=== PATIENT | male | born 1970 | race Caucasian/White ===

== ENCOUNTER 2017-04-20 00:43 | Inpatient (IN) | payer MEDICARE ==
[2017-04-20 00:44] VITALS: BMI 35.5
[2017-04-20 00:46] VITALS: O2SAT 96
[2017-04-20 02:37] LABS: BASO # 0.1 K/uL (0.0-0.2); BASO % 0.8 % (0.0-2.0); EOS # 0.4 K/uL (0.0-0.7); HEMATOCRIT 41.1 % (35.0-51.0); LYMPH # 4.9 K/uL (1.0-4.3); LYMPH % 41.2 % (20.0-40.0); MEAN CELL VOLUME 85.4 fl (80.0-94.0); MEAN CORPUSCULAR HEMOGLOBIN 27.7 pg (27.0-31.0); MEAN CORPUSCULAR HGB CONC 32.5 g/dL (33.0-37.0); MEAN PLATELET VOLUME 7.2 fl (7.2-11.7); MONO # 0.9 K/uL (0.0-0.8); MONO % 7.6 % (0.0-10.0); NEUT # 5.6 K/uL (1.8-7.0); NEUT % 47.4 % (50.0-75.0); RED CELL DISTRIBUTION WIDTH 14.7 % (11.5-14.5); WHITE BLOOD COUNT 11.9 K/uL (4.8-10.8)
[2017-04-20 02:42] LABS: ALB/GLOB RATIO 1.5 (1.0-2.1); ALCOHOL SERUM < 10 mg/dl (0-10); ALKALINE PHOSPHATASE 73 U/L (38-126); ALT/SGPT 84 U/L (21-72); AST/SGOT 51 U/L (17-59); BILIRUBIN,TOTAL 0.5 mg/dl (0.2-1.3); BLOOD UREA NITROGEN 17 mg/dl (9-20); CARBON DIOXIDE 26 mmol/L (22-30); CHLORIDE 105 mmol/L (98-107); GFR AFRICAN-AMERICAN > 60; GLUCOSE,RANDOM 100 mg/dL (75-110); POTASSIUM 4.2 MMOL/L (3.6-5.0); SODIUM 141 mmol/l (132-148); TOTAL PROTEIN 7.5 G/DL (6.3-8.2)
--- NOTE | 2017-04-20 02:45 | ED PDOC ---
HPI: Psych/Substance Abuse Time Seen by Provider: 04/20/17 01:00 Chief Complaint (Nursing): Psychiatric Evaluation Chief Complaint (Provider): Psychiatric Evaluation History Per: Patient History/Exam Limitations: no limitations Onset/Duration Of Symptoms: Days (x1 week) Current Symptoms Are (Timing): Still Present Additional Complaint(s): 46 y/o male presents to the emergency department with a complaint of worsening depression x1 week. Associated with suicidal ideation. Reports being admitted in the past for previous depression of suicidal thoughts. States he is not currently following up with a psychiatrist or taking psychiatric medications. Denies active plan (initially verbalized thought of jumping [place] of [place]), Denies auditory or visual hallucinations. Past Medical History Reviewed: Historical Data, Nursing Documentation, Vital Signs Vital Signs: Last Vital Signs Temp 98.6 F 04/20/17 00:44 Pulse 88 04/20/17 00:44 Resp 13 04/20/17 00:44 BP 134/81 04/20/17 00:44 Pulse Ox 96 04/20/17 00:44 - Medical History PMH: Back Problems, Bipolar Disorder, Depression, Migraine Denies: Diabetes, Hepatitis, HIV, HTN, Seizures, Sexually Transmitted Disease - Surgical History Surgical History: Cholecystectomy, Tonsillectomy Other surgeries: Lumbar spine fusion, right knee ACL and MCL repair, and right shoulder surgery - Family History Family History: States: No Known Family Hx - Social History Current smoker - smoking cessation education provided: Yes (Heavy Smoker > 10 Cigarettes Daily) Alcohol: None Drugs: Cocaine - Immunization History Hx Tetanus Toxoid Vaccination: No Hx Influenza Vaccination: No Hx Pneumococcal Vaccination: No - Home Medications Home Medications: Ambulatory Orders Medication Instructions Recorded Duloxetine HCl [Duloxetine] 60 mg PO DAILY 04/20/17 Omeprazole [Omeprazole] 40 mg PO DAILY 04/20/17 - Allergies Allergies/Adverse Reactions: Allergies Allergy/AdvReac Type Severity Reaction Status Date / Time meperidine HCl [From Demerol] Allergy DIZZINESS Verified 04/20/17 00:47 Review of Systems ROS Statement: Except As Marked, All Systems Reviewed And Found Negative Psych: Positive for: Depression, Suicidal ideation. Negative for: Other ( Auditory/visual hallucinations or active plan) Physical Exam - Reviewed Nursing Documentation Reviewed: Yes Vital Signs Reviewed: Yes - Physical Exam Appears: Positive for: Non-toxic, No Acute Distress Head Exam: Positive for: ATRAUMATIC, NORMOCEPHALIC Skin: Positive for: Normal Color, Warm, Dry Neck: Positive for: Normal, Supple Cardiovascular/Chest: Positive for: Regular Rate, Rhythm. Negative for: Murmur Respiratory: Positive for: Normal Breath Sounds. Negative for: Accessory Muscle Use, Respiratory Distress Gastrointestinal/Abdominal: Positive for: Normal Exam, Soft. Negative for: Tenderness Extremity: Positive for: Normal ROM. Negative for: Pedal Edema Neurologic/Psych: Positive for: Alert, Oriented, Mood/Affect (Flat) - Laboratory Results Result Diagrams: 04/20/17 02:31 04/20/17 02:31 - ECG O2 Sat by Pulse Oximetry: 96 (RA) Pulse Ox Interpretation: Normal Medical Decision Making Medical Decision Making: Time: 01:00 Initial impression: 46 y/o male with depression and suicidal ideation in setting of known biopolar disorder Initial plan: --Electrocardiogram Stat --Alcohol Serum Stat --COMP metabolic panel --Drug screen, Urine Stat --Crisis Evaluation As Ordered --ED Urine Dipstick (POC) --EKG-ED (EDNURTX) Stat --CBC w/ differential --Chest Two Views (PA/LAT) (RAD) --Toradol 15 mg IM --Urinalysis Stat --Revaluation --Patient was evaluated by crisis and admitted for further treatment and stabilization. --Diagnosed with bipolar disorder and depression. --Condition is fair. --Pending labs, Chest X-ray and EKG for medical clearance. Time: 01:52 --Patient was admitted to adult psychiatry as an inpatient for bipolar D/O depressed under Dr. Carlos Rojas MD Time: 03:03 --Chest X-ray show no acute disease. --Patient is medically stable and ready for psychiatric admission. Scribe Attestation: Documented by Katheryn Kwon, acting as a scribe for Nabeel Shaw MD. Provider Scribe Attestation: All medical record entries made by the Scribe were at my direction and personally dictated by me. I have reviewed the chart and agree that the record accurately reflects my personal performance of the history, physical exam, medical decision making, and the department course for this patient. I have also personally directed, reviewed, and agree with the discharge instructions and disposition. Disposition - Clinical Impression Clinical Impression: Psychotic disorder - Patient ED Disposition Is Patient to be Admitted: Yes - Disposition Disposition Time: 01:50 Condition: FAIR - Pt Status Changed To: Hospital Disposition Of: Inpatient - Admit Certification Admit to Inpatient:: After my assessment, the patient will require hospitalization for at least two midnights. This is because of the severity of symptoms shown, intensity of services needed, and/or the medical risk in this patient being treated as an outpatient.
[2017-04-20 02:59] LABS: RBC URINE 9 /hpf (0-3); URINE BILIRUBIN SMALL (NEGATIVE); URINE BLOOD NEGATIVE (NEGATIVE); URINE COLOR AMBER (YELLOW); URINE GLUCOSE (UA) NEG (Normal); URINE KETONE TRACE mg/dL (NEGATIVE); URINE LEUKOCYTE ESTERASE NEG Leu/uL (Negative); URINE PROTEIN 100 mg/dL (NEGATIVE); WBC URINE 2 /hpf (0-5)
[2017-04-20] MEDS ORDERED: Magnesium Hydroxide Susp 30 ml UD PO PRN (03:47)
[2017-04-20] MEDS ORDERED: DiphenhydrAMINE 50 mg/ml Inj IM PRN (03:47)
[2017-04-20] MEDS: Alum-Mag Hydrox-Simethicone Susp (30 mL) PO PRN ×2 (04:22→09:23)
--- NOTE | 2017-04-20 10:07 | CP.PCM.CON ---
History of Present Illness - History of Present Illness History of Present Illness: Reason for consult: per hospital protocol Chief Complaint: Suicide thoughts HPI: 46 year old male with hx of migraines on topamax, GERD on protonix, and reglan, admitted for suicidal thoughts and had a plan to jump off the [place]. Patient called ambulance for help and came to emergency room. Patient also states he has a throat problem, possible cancer in throat? Patient instructed to follow up with [facility] to be referred to ENT. Otherwise patient has no complaints. VSS NAD. ROS: as per HPI, all other systems reviewed and negative by me PMH: migraines on Topamax PSH: two fusions lower back 2002, 2004, tonsils, sinus, R knee ACL/MCL, R shoulder rotator cuff, L hernia groin, L wrist pin, R testicle tumor removed Family History: denies Social History: smoke 1ppd, over 20 years, no ETOH, cocaine 4 days ago Home Medications: Allergies: demerol Constitutional- cooperative, awake, alert. Head- NCAT, PERRLEye- PERRL, normal accommodation ENT- MMM. Neck- normal inspection, supple, no JVD Respiratory- decreased BS, no wheezes rales rhonchi Cardiovascular- RRR, +S1, +S2 no MRG GI/Abdominal- normal bowel sounds, soft Extremities Exam- normal capillary refill, normal inspection Neurological Exam- alert, oriented Labs: 04/20/17 02:31 04/20/17 02:31 Assessment and Plan: 46 year old male with hx of migraines on topamax, GERD on protonix, and reglan, admitted for suicidal thoughts and had a plan to jump off the [place]. Patient called ambulance for help and came to emergency room. Patient also states he has a throat problem, possible cancer in throat? Patient instructed to follow up with [facility] to be referred to ENT. Otherwise patient has no complaints. VSS NAD. Suicidal ideation per psych management Throat Ca? Follow up with [facility] GERD Protonix and Reglan Past Patient History - Past Social History Alcohol: None Drugs: Cocaine - CARDIAC Hx Cardiac Disorders: No - PULMONARY Hx Respiratory Disorders: No Hx Tuberculosis: No - NEUROLOGICAL Hx Migraine: Yes Hx Seizures: No - HEENT Hx HEENT Problems: No - RENAL Hx Chronic Kidney Disease: No - ENDOCRINE/METABOLIC Hx Endocrine Disorders: No - HEMATOLOGICAL/ONCOLOGICAL Hx Blood Disorders: No Hx Human Immunodeficiency Virus (HIV): No - INTEGUMENTARY Hx Dermatological Problems: No - MUSCULOSKELETAL/RHEUMATOLOGICAL Hx Back Pain: Yes - GASTROINTESTINAL Hx Gastroesophageal Reflux: Yes - GENITOURINARY/GYNECOLOGICAL Hx Sexually Transmitted Disorders: No - PSYCHIATRIC Hx Substance Use: Yes - SURGICAL HISTORY Hx Cholecystectomy: Yes Hx Tonsillectomy: Yes - ANESTHESIA Hx Anesthesia: Yes Hx Anesthesia Reactions: No Meds Allergies/Adverse Reactions: Allergies Allergy/AdvReac Type Severity Reaction Status Date / Time meperidine HCl [From Demerol] Allergy DIZZINESS Verified 04/20/17 00:47 - Medications Medications: Current Medications Acetaminophen (Tylenol 325mg Tab) 650 mg PO Q4 PRN PRN Reason: pain level 1-7 Al Hydrox/Mg Hydrox/Simethicone (Maalox Plus 30 Ml) 30 ml PO Q4 PRN PRN Reason: Dyspepsia Last Admin: 04/20/17 09:23 Dose: 30 ml Diphenhydramine HCl (Benadryl) 50 mg IM Q6 PRN PRN Reason: Extrapyramidal S/S Unable PO Diphenhydramine HCl (Benadryl) 50 mg PO Q6 PRN PRN Reason: Extrapyramidal Symptoms Haloperidol (Haldol) 5 mg PO Q4 PRN PRN Reason: Agitation Haloperidol Lactate (Haldol) 5 mg IM Q4 PRN PRN Reason: Agitation, Unable to Take PO Lorazepam (Ativan) 2 mg IM Q4 PRN PRN Reason: Anxiety/Agitation,Unable PO Lorazepam (Ativan) 2 mg PO Q4 PRN PRN Reason: Anxiety/Agitation Magnesium Hydroxide (Milk Of Magnesia) 30 ml PO HS PRN PRN Reason: Constipation Results - Vital Signs Recent Vital Signs: Last Vital Signs Temp 97.5 F L 04/20/17 08:59 Pulse 69 04/20/17 08:59 Resp 18 04/20/17 08:59 BP 123/84 04/20/17 08:59 Pulse Ox 96 04/20/17 03:04 - Labs Result Diagrams: 04/20/17 02:31 04/20/17 02:31 Labs: Laboratory Results - last 24 hr 04/20/17 04/20/17 04/20/17 02:31 02:31 02:49 WBC 11.9 H RBC 4.82 Hgb 13.3 Hct 41.1 MCV 85.4 MCH 27.7 MCHC 32.5 L RDW 14.7 H Plt Count 316 MPV 7.2 Neut % (Auto) 47.4 L Lymph % (Auto) 41.2 H [place] % (Auto) 7.6 Eos % (Auto) 3.0 Baso % (Auto) 0.8 Neut # 5.6 Lymph # 4.9 H [place] # 0.9 H Eos # 0.4 Baso # 0.1 Sodium 141 Potassium 4.2 Chloride 105 Carbon Dioxide 26 Anion Gap 14 BUN 17 Creatinine 1.1 Est GFR ( Amer) > 60 Est GFR (Non-Af Amer) > 60 Random Glucose 100 Calcium 9.0 Total Bilirubin 0.5 AST 51 ALT 84 H Alkaline Phosphatase 73 Total Protein 7.5 Albumin 4.5 Globulin 3.0 Albumin/Globulin Ratio 1.5 Urine Color Urine Clarity Urine pH Ur Specific [place] Urine Protein Urine Glucose (UA) Urine Ketones Urine Blood Urine Nitrate Urine Bilirubin Urine Urobilinogen Ur Leukocyte Esterase Urine RBC (Auto) Urine Microscopic WBC Ur Squamous Epith Cells Urine Opiates Screen Positive H Urine Methadone Screen Negative Ur Barbiturates Screen Negative Ur Phencyclidine Scrn Negative Ur Amphetamines Screen Negative U Benzodiazepines Scrn Positive H U Oth Cocaine Metabols Positive H U Cannabinoids Screen Negative Alcohol, Quantitative < 10 04/20/17 02:49 WBC RBC Hgb Hct MCV MCH MCHC RDW Plt Count MPV Neut % (Auto) Lymph % (Auto) [place] % (Auto) Eos % (Auto) Baso % (Auto) Neut # Lymph # [place] # Eos # Baso # Sodium Potassium Chloride Carbon Dioxide Anion Gap BUN Creatinine Est GFR ( Amer) Est GFR (Non-Af Amer) Random Glucose Calcium Total Bilirubin AST ALT Alkaline Phosphatase Total Protein Albumin Globulin Albumin/Globulin Ratio Urine Color Lizzette Urine Clarity Slighty-cloudy Urine pH 5.0 Ur Specific [place] 1.029 Urine Protein 100 Urine Glucose (UA) Neg Urine Ketones Trace Urine Blood Negative Urine Nitrate Negative Urine Bilirubin Small Urine Urobilinogen 2.0 Ur Leukocyte Esterase Neg Urine RBC (Auto) 9 H Urine Microscopic WBC 2 Ur Squamous Epith Cells 1 Urine Opiates Screen Urine Methadone Screen Ur Barbiturates Screen Ur Phencyclidine Scrn Ur Amphetamines Screen U Benzodiazepines Scrn U Oth Cocaine Metabols U Cannabinoids Screen Alcohol, Quantitative
[2017-04-20 11:13] LABS: T4 6.2 ug/dl (5.5-11.0)
[2017-04-20 11:26] LABS: THYROID STIMULATING HORMONE 1.05 mIU/ML (0.46-4.68)
--- NOTE | 2017-04-20 14:32 | RAD ---
HISTORY: admit COMPARISON: No prior. TECHNIQUE: Chest PA and lateral FINDINGS: LUNGS: No active pulmonary disease. PLEURA: No significant pleural effusion identified. No pneumothorax apparent. CARDIOVASCULAR: Normal. OSSEOUS STRUCTURES: No significant abnormalities. VISUALIZED UPPER ABDOMEN: Normal. OTHER FINDINGS: None. IMPRESSION: No active disease.
[2017-04-20] MEDS ORDERED: Alum-Mag Hydrox-Simethicone Susp (30 mL) PO PRN (23:40)
--- NOTE | 2017-04-20 23:50 | PCM.PSYCH ---
Initial Psychiatric Evaluation - Initial Psychiatric Evaluation Chief Complaint (in patient's own words): was feeling depressed, was drinking, have suicidal ideation Patient's Reaction to Hospitalization: verbally agreeable History of Present Illness and Precipitating Events: reports recently feeling sad, was homeless, away from family, had been drinking , was thinking about taking life, came to [place]. was living in [place], came to [place] is homeless, recently x 1 year friends with ex with whom 20+ yo son lives. ex recently remarried. reportedly divorce was mutual. previous treatment for bipolar two disorder. past meds include gabapentin, seroquel, cymbalta. reports recently was also using cocaine and heroin intranasally. is currently complaining of withdrawal symtpoms -aches pains stomach upset . reports psych meds take recently as two days ago. Current Medications: Active Medications Generic Name Dose Route Start Last Admin Trade Name Freq PRN Reason Stop Dose Admin Acetaminophen 650 mg 04/20/17 03:47 Tylenol 325mg Tab PO Q4 PRN pain level 1-7 Al Hydrox/Mg Hydrox/Simethicone 30 ml 04/20/17 03:47 04/20/17 09:23 Maalox Plus 30 Ml PO 30 ml Q4 PRN Administration Dyspepsia Clonidine HCl 0.1 mg 04/20/17 12:38 04/20/17 14:45 Catapres PO 0.1 mg Q4H PRN Administration Symptoms of alcohol withdrawl Diphenhydramine HCl 50 mg 04/20/17 03:47 Benadryl IM Q6 PRN Extrapyramidal S/S Unable PO Diphenhydramine HCl 50 mg 04/20/17 03:47 Benadryl PO Q6 PRN Extrapyramidal Symptoms Duloxetine HCl 20 mg 04/21/17 09:00 Cymbalta PO DAILY RIOS Duloxetine HCl 20 mg 04/20/17 23:46 Cymbalta PO 04/20/17 23:47 ONCE ONE Folic Acid 1 mg 04/21/17 09:00 Folic Acid PO DAILY RIOS Gabapentin 600 mg 04/20/17 23:43 Neurontin PO BID RIOS Haloperidol 5 mg 04/20/17 03:47 Haldol PO Q4 PRN Agitation Haloperidol Lactate 5 mg 04/20/17 03:47 Haldol IM Q4 PRN Agitation, Unable to Take PO Lorazepam 2 mg 04/20/17 03:47 Ativan IM Q4 PRN Anxiety/Agitation,Unable PO Lorazepam 2 mg 04/20/17 03:47 04/20/17 12:30 Ativan PO 2 mg Q4 PRN Administration Anxiety/Agitation Lorazepam 1 mg 04/20/17 12:38 04/20/17 21:13 Ativan PO 1 mg Q4H PRN Administration Symptoms of alcohol withdrawl Magnesium Hydroxide 30 ml 04/20/17 03:47 Milk Of Magnesia PO HS PRN Constipation Multivitamins/Minerals 1 tab 04/21/17 09:00 Therapeutic-M Tab PO DAILY RIOS Pantoprazole Sodium 20 mg 04/21/17 09:00 Protonix Ec Tab PO DAILY RIOS Thiamine HCl 100 mg 04/21/17 09:00 Vitamin B1 Tab PO DAILY RIOS Past Psychiatric History - Past Psychiatric History Prior Professional Help: inpt out detox [facility] hospital: varied Pertinent Medical Hx (Current Medical&Sleep Prob, Allergies): Allergies Allergy/AdvReac Type Severity Reaction Status Date / Time meperidine HCl [From Demerol] Allergy DIZZINESS Verified 04/20/17 00:47 Duloxetine HCl [Duloxetine] 60 mg PO DAILY 04/20/17 Omeprazole [Omeprazole] 40 mg PO DAILY 04/20/17 Review of Systems - Psychiatric Psychiatric: Abnormal Sleep Pattern, Anhedonia, Anxiety, Depression, Mood Swings Mental Status Examination - Personal Presentation Personal Presentation: Looks older than stated age - Affect Affect: Constricted - Motor Activity Motor Activity: Calm, Psychomotor Retardation - Reliability in Providing Information Reliability in Providing Information: Fair - Speech Speech: Organized - Mood Mood: Depressed - Obsessions/Compulsions Obsessions: No Compulsions: No - Cognitive Functions Orientation: Person, Place, Situation, Time Sensorium: Alert Judgement: Imparied, as evidence by: Other - Risk Risk: Diminished functioning - Limitations Additional comments: relapse DSM 5 DX - DSM 5 DSM 5 Diagnosis: bipolar two polysubstance use - Recommended/Plan of Treatment Treatment Recommendations and Plan of Treatment: inpt admission per attending md vital signs and clinical observation per clinical status and per protocol seroquel 300mg po hs gabapentin 600mg po bid cymbalta 20mg po x one dose now hosptialist consult discharge planning Projected ELOS: 5-7 days Prognosis: guarded Discharge Plan and Discharge Criteria: safety - Smoking Cessation Smoking Cessation Initiated: No Reason for not providing: deferred
[2017-04-21 01:23] VITALS: RESP 18
[2017-04-21 07:01] LABS: BASO # 0.1 K/uL (0.0-0.2); BASO % 0.8 % (0.0-2.0); EOS # 0.4 K/uL (0.0-0.7); EOS % 3.6 % (0.0-4.0); HEMATOCRIT 42.4 % (35.0-51.0); LYMPH # 5.2 K/uL (1.0-4.3); LYMPH % 44.7 % (20.0-40.0); MEAN CELL VOLUME 86.5 fl (80.0-94.0); MEAN CORPUSCULAR HEMOGLOBIN 28.5 pg (27.0-31.0); MEAN CORPUSCULAR HGB CONC 32.9 g/dL (33.0-37.0); MEAN PLATELET VOLUME 7.4 fl (7.2-11.7); MONO # 0.7 K/uL (0.0-0.8); MONO % 6.5 % (0.0-10.0); NEUT # 5.1 K/uL (1.8-7.0); NEUT % 44.4 % (50.0-75.0); NRBC % 0.1 % (0.0-0.0); RED CELL DISTRIBUTION WIDTH 14.8 % (11.5-14.5); WHITE BLOOD COUNT 11.5 K/uL (4.8-10.8)
[2017-04-21] MEDS: Pantoprazole 20 mg EC Tab PO SCH (10:14)
[2017-04-21] MEDS: Multivitamin With Minerals Tab PO SCH (10:19)
--- NOTE | 2017-04-21 10:54 | PCM.PYCHPN ---
Psychiatric Progress Note - Psychiatric Progress Note Patient seen today, length of contact: discussed with team Patient Chief Complaint: i didn't sleep Problems Identified/Issues Discussed: met with pt. pt c.o poor sleep. he is isolating in his room he denies medication side effects. fair i/j. Medication Change: No Medical Record Reviewed: Yes Mental Status Examination - Cognitive Function Orientation: Person, Place, Situation, Time Memory: Intact Attention: WNL Concentration: WNL Association: WNL Fund of Knowledge: [facility] Decription of patient's judgement and insights: fair - Mood Mood: Depressed - Affect Affect: Constricted - Speech Speech: Appropriate - Formal Thought Process Formal Thought Process: No Impairment Psychotic Thoughts and Behaviors: denies a/v hallucinations - Suicidal Ideation Suicidal Ideation: No - Homicidal Ideation Homicidal Ideation: No Goal/Treatment Plan - Goal/Treatment Plan Need for Continued Stay: Remain at risks for inpatient hospitalization, Severe functional impairment Progress Toward Problem(s) and Goals/Treatment Plan: bipolar disorder polysubstance dependence pt needs further treatment and stabilization will add remeron for sleep. Estimated Date of D/C: 04/23/17
[2017-04-22] MEDS: Pantoprazole 20 mg EC Tab PO SCH (08:46)
[2017-04-22] MEDS: Multivitamin With Minerals Tab PO SCH (08:48)
--- NOTE | 2017-04-22 12:33 | PCM.PYCHPN ---
Psychiatric Progress Note - Psychiatric Progress Note Patient seen today, length of contact: discussed with team Patient Chief Complaint: i have diarrhea Problems Identified/Issues Discussed: pt is c/o diarrhea today. he feels anxious. feels restless. states he is withdrawing from heroin. he is isolating in his room. Medication Change: No Medical Record Reviewed: Yes Mental Status Examination - Cognitive Function Orientation: Person, Place, Situation, Time Memory: Intact Attention: WNL Concentration: WNL Association: WNL Fund of Knowledge: [facility] Decription of patient's judgement and insights: fair - Mood Mood: Depressed - Affect Affect: Constricted - Speech Speech: Appropriate - Formal Thought Process Formal Thought Process: No Impairment Psychotic Thoughts and Behaviors: denies a/v hallucinations - Suicidal Ideation Suicidal Ideation: No - Homicidal Ideation Homicidal Ideation: No Goal/Treatment Plan - Goal/Treatment Plan Need for Continued Stay: Remain at risks for inpatient hospitalization, Severe functional impairment Progress Toward Problem(s) and Goals/Treatment Plan: bipolar disorder polysubstance dependence pt needs further treatment and stabilization prn imodium for diarrhea and remeron for sleep. Estimated Date of D/C: 04/23/17
[2017-04-23] MEDS: Pantoprazole 20 mg EC Tab PO SCH (09:58)
[2017-04-23] MEDS: Multivitamin With Minerals Tab PO SCH (09:59)
--- NOTE | 2017-04-23 10:15 | CARD ---
APPROVED REPORT EKG Measurement Heart [id number] <Conclusion> Normal sinus rhythm Cannot rule out Anterior infarct, age undetermined Abnormal ECG
--- NOTE | 2017-04-23 12:11 | PCM.PYCHPN ---
Psychiatric Progress Note - Psychiatric Progress Note Patient seen today, length of contact: in treatment team Patient Chief Complaint: i need thorazine Problems Identified/Issues Discussed: pt reports being homeless. coming here from [place] after told he may have throat cancer. states he is no longer withdrawing from opiates. still asking for ativan for etoh. pt ok with dc of cymbalta because of concerns with his drinking. he states he needs thorazine to help with his voices. he is isolating in room, but is more conversant today. Medication Change: No Medical Record Reviewed: Yes Mental Status Examination - Cognitive Function Orientation: Person, Place, Situation, Time Memory: Intact Attention: WNL Concentration: WNL Association: [facility] Fund of Knowledge: [facility] Decription of patient's judgement and insights: fair - Mood Mood: Depressed, Anxious - Affect Affect: Constricted - Speech Speech: Appropriate - Formal Thought Process Formal Thought Process: Hallucinations Psychotic Thoughts and Behaviors: vague c/o hallucinations - Suicidal Ideation Suicidal Ideation: No - Homicidal Ideation Homicidal Ideation: No Goal/Treatment Plan - Goal/Treatment Plan Need for Continued Stay: Remain at risks for inpatient hospitalization, Severe functional impairment Progress Toward Problem(s) and Goals/Treatment Plan: schizoaffective disorder polysubstance dependence pt needs further treatment and stabilization dc cymbalta start zoloft- discussed r/b/se with pt start thorazine as pt feels it has helped in past increase remeron as pt takes 30mg usually encourage participation in groups disposition planning Estimated Date of D/C: 04/23/17
[2017-04-24] MEDS: Multivitamin With Minerals Tab PO SCH ×2 (09:50→09:52)
[2017-04-24] MEDS: Pantoprazole 20 mg EC Tab PO SCH (09:53)
--- NOTE | 2017-04-24 12:44 | PCM.PYCHPN ---
Psychiatric Progress Note - Psychiatric Progress Note Patient seen today, length of contact: discussed with team Patient Chief Complaint: can i go tomorrow doc? Problems Identified/Issues Discussed: pt frequently asks for ativan. no evidence of withdrawal at this point. pt asked to be discharged tomorrow after learning ativan was discontinued. he denies suicidal thoughts currently. Medication Change: Yes (increase thorazine) Medical Record Reviewed: Yes Mental Status Examination - Cognitive Function Orientation: Person, Place, Situation, Time Memory: Intact Attention: WNL Concentration: WNL Association: WNL Fund of Knowledge: [facility] Decription of patient's judgement and insights: fair - Mood Mood: Neutral - Affect Affect: Broad - Speech Speech: Appropriate - Formal Thought Process Formal Thought Process: Hallucinations Psychotic Thoughts and Behaviors: vague c/o hallucinations - Suicidal Ideation Suicidal Ideation: No - Homicidal Ideation Homicidal Ideation: No Goal/Treatment Plan - Goal/Treatment Plan Need for Continued Stay: Remain at risks for inpatient hospitalization, Severe functional impairment Progress Toward Problem(s) and Goals/Treatment Plan: schizoaffective disorder polysubstance dependence continue current medications encourage participation in groups disposition planning- discharge tomorrow Estimated Date of D/C: 04/23/17
[2017-04-25] MEDS: Pantoprazole 20 mg EC Tab PO SCH (08:30)
[2017-04-25] MEDS: Multivitamin With Minerals Tab PO SCH (08:30)
--- NOTE | 2017-04-25 09:30 | PCM.PYCHDC ---
Mental Status Examination - Mental Status Examination Orientation: Person, Place, Situation, Time Memory: Intact Mood: Neutral Affect: Broad Speech: Appropriate Attention: WNL Concentration: WNL Association: WNL Fund of Knowledge: WNL Formal Thought Process: No Impairment Description of patient's judgement and insight: fair Psychotic Thoughts and Behaviors: denies a/v hallucinations Suicidal Ideation: No Current Homicidal Ideation?: No Plan: pt denies any suicidal or homicidal thoughts/plan or intent Discharge Summary - Discharge Note Reason for Hospitalization: pt using alcohol,cocane and heroin, c./o hallucinations and suicidal thoughts Psychiatric History (includes Medical, Family, Personal Hx): history of schizoaffective disorder, substance abuse Laboratory Data: uds positive for cocaine, heroin Consultations:: List each consultation separately and include: 1. Reason for request. 2. Findings. 3. Follow-up Consultations: seen by the hospitalist Summary of Hospital Course include:: 1. Description of specific treatment plan utilized for patients during their course of treatmen. 2. Summarize the time- course for resolution of acute symptoms and/or regressed behaviors. 3. Describe issues identified and worked on during hospitalization. 4. Describe medication utilized. 5. Describe medical problems identified and treated. 6. Reassessment of suicide risk Summary of Hospital Course: pt was admitted to [facility] and oriented to the unit. pt placed on routine safety protocols. pt placed on detox meds for alcohol and heroin. he was seen by the hospitalist. he was started back on his preferred psychiatric medications to address his c/o hallucinations and anxiety. he tolerated the medication adjustments and did not have any withdrawal complications. at the time of discharge he was goal directed, future oriented and denying any suicidal or homicidal thoughts. he was denying any medication side effects. - Final Diagnosis (DSM 5) Condition upon Discharge: FAIR DSM 5: schizoaffective disroder, bipolar type polysubstance dependence Disposition: HOME/ ROUTINE Follow-up Treatment Plan: take medications as prescribed do not use alcohol, tobacco or other illicit substances call 911 if any suicidal or homicidal thoughts see your primary care doctor as neeeded attend aa/na meetings daily Prescriptions/Medication Reconciliation: chlorproMAZINE [Thorazine] 100 mg PO Q12 #30 tab Folic Acid 1 mg PO DAILY #30 tab Gabapentin [Neurontin] 600 mg PO BID #30 tab Mirtazapine [Remeron] 30 mg PO HS #15 tab Multimineral/Multivitamin [Therapeutic-M Tab] 1 tab PO DAILY #30 tab Pantoprazole [Protonix EC Tab] 20 mg PO DAILY #30 ect QUEtiapine [SEROquel] 300 mg PO HS #15 tab Sertraline [Zoloft] 25 mg PO DAILY #15 tab Thiamine [Vitamin B1 Tab] 100 mg PO DAILY #30 tab - Smoking Cessation Smoking Cessation Medication prescribed: No Reason for not providing: declines - Antipsychotic Medications Pt discharged on 2 or more routine antipsychotic medications: Yes - Justification for 2 or more meds Failed 3 or more trials of Monotherapy: List medications: pt states he has not done well with risrobbydajesi, malka addison. feels this combintation is the most helpful Plan to taper monotherapy: List medications: when in consistant treatment, may be able to taper too montherapy
[2017-04-25 12:59] VITALS: BP 125/91; PULSE 80; TEMP 97.5
== END 2017-04-25 11:00 | disposition home or self-care (01) | DRG 885 ==
LOC: H.ER 00:43 → H.ERHOLD 01:52 → H.PSYCH 03:44
PROVIDERS: ADMIT Psychiatry & Neurology Psychiatry; ATTEND Psychiatry & Neurology Psychiatry
PROC: GZ51ZZZ Individual Psychotherapy, Behavioral (ICD-10-PCS; principal; 2017-04-20)
DX: F31.81 Bipolar II disorder (principal); R45.851 Suicidal ideations; F25.9 Schizoaffective disorder, unspecified; Z59.0 Homelessness; F19.10 Other psychoactive substance abuse, uncomplicated; F10.10 Alcohol abuse, uncomplicated; K21.9 Gastro-esophageal reflux disease without esophagitis; G43.909 Migraine, unspecified, not intractable, without status migrainosus; F17.210 Nicotine dependence, cigarettes, uncomplicated